=== PATIENT | female | born 1980 ===

== ENCOUNTER 2018-09-25 10:39 | Emergency (ER) | payer MEDICAID, OTHER ==
[2018-09-25 10:40] VITALS: BMI 23.9
[2018-09-25 11:09] VITALS: TEMP 97.6
[2018-09-25] MEDS ORDERED: Benzocaine/Menthol (Cepacol) Lozenge MT STA (11:52)
[2018-09-25 12:23] LABS: INFLUENZA A B NEGATIVE FOR FLU A/B (NEGATIVE)
--- NOTE | 2018-09-25 12:33 | ED PDOC ---
Arrival/HPI - General Chief Complaint: ENT Problem Time Seen by Provider: 09/25/18 10:41 Historian: Patient - History of Present Illness Narrative History of Present Illness (Text): 09/25/18 11:10 38 y/o female, with no significant PMH, presents to the ED for evaluation of fever and sore throat x 4 days. Patient states worsening sore throat with swallowing but denies any changes to PO intake. Patient reports taking ibuprofen at 6 am this morning for the symptoms with mild improvement. Patient denies any other associated somatic complaints. Patient denies any recent travel or sick contact. Patient denies any chills, headache, dizziness, chest pain, shortness of breath, dyspnea on exertion, cough, abdominal pain, drooling, nausea, vomiting, diarrhea, back pain, neck pain, neck stiffness, congestion, or any other complaints. Time/Duration: < week Symptom Onset: Gradual Symptom Course: Unchanged Activities at Onset: Light Context: Home Past Medical History - Provider Review Nursing Documentation Reviewed: Yes - Infectious Disease Hx of Infectious Diseases: None - Past Medical History Past Medical History: No Previous - Cardiac Hx Cardiac Disorders: No - Pulmonary Hx Respiratory Disorders: No - Neurological Hx Neurological Disorder: No - HEENT Hx HEENT Disorder: No - Renal Hx Renal Disorder: No - Endocrine/Metabolic Hx Endocrine Disorders: Yes Hx Hypothyroidism: Yes - Hematological/Oncological Hx Blood Disorders: No - Integumentary Hx Dermatological Disorder: No - Musculoskeletal/Rheumatological Hx Musculoskeletal Disorders: No - Gastrointestinal Hx Gastrointestinal Disorders: No - Genitourinary/Gynecological Hx Genitourinary Disorders: No - Psychiatric Hx Psychophysiologic Disorder: No Hx Substance Use: No - Surgical History Hx Section: Yes - Anesthesia Hx Anesthesia: Yes Hx Anesthesia Reactions: No Hx Malignant Hyperthermia: No - Suicidal Assessment Feels Threatened In Home Enviroment: No Family/Social History - Physician Review Nursing Documentation Reviewed: Yes Family/Social History: Unknown Family HX Smoking Status: Never Smoked Hx Alcohol Use: No Hx Substance Use: No Hx Substance Use Treatment: No Allergies/Home Meds Allergies/Adverse Reactions: Allergies latex Allergy (Verified 09/25/18 11:05) RASH Review of Systems - Physician Review All systems were reviewed & negative as marked: Yes - Review of Systems Constitutional: Fevers Eyes: Normal. absent: Vision Changes, Photophobia ENT: Sore Throat. absent: Rhinorrhea, Sinus Congestion Respiratory: Normal. absent: SOB, Cough, Sputum Cardiovascular: Normal. absent: Chest Pain, MONTANO Gastrointestinal: Normal. absent: Abdominal Pain, Stool Changes, Diarrhea, Nausea, Vomiting, Appetite Changes Genitourinary Female: Normal. absent: Dysuria, Frequency, Urine Output Changes Musculoskeletal: Normal. absent: Back Pain, Neck Pain Skin: Normal. absent: Rash Neurological: Normal. absent: Headache, Dizziness Endocrine: Normal. absent: Diaphoresis Hemo/Lymphatic: Normal Psychiatric: Normal. absent: Anxiety Physical Exam Vital Signs Reviewed: Yes Vital Signs Temp Pulse Resp BP Pulse Ox 09/25/18 11:05 97.6 F 73 17 110/72 99 Temperature: Afebrile Blood Pressure: Normal Pulse: Regular Respiratory Rate: Normal Appearance: Positive for: Well-Appearing, Non-Toxic, Comfortable Pain Distress: None Mental Status: Positive for: Alert and Oriented X 3 - Systems Exam Head: Present: Atraumatic, Normocephalic Pupils: Present: PERRL Extroacular Muscles: Present: EOMI Conjunctiva: Present: Normal Mouth: Present: Moist Mucous Membranes. No: Drooling Pharnyx: Present: ERYTHEMA (tonsilar erythema b/l), EXUDATE (tonsilar exudate bilaterally), TONSILS ENLARGED (bilaterally) Neck: Present: Normal Range of Motion, Lymphadenopathy (Right sided anterior cervical lymphadenopathy). No: Meningeal Signs, MIDLINE TENDERNESS Respiratory/Chest: Present: Clear to Auscultation, Good Air Exchange. No: Respiratory Distress, Accessory Muscle Use Cardiovascular: Present: Regular Rate and Rhythm, Normal S1, S2, Peripheal Pulses Present. No: Murmurs Back: Present: Normal Inspection. No: CVA Tenderness Upper Extremity: Present: Normal Inspection, Normal ROM, NORMAL PULSES, Neurovascularly Intact, Capillary Refill < 2s. No: Cyanosis, Edema, Tenderness, Swelling, Temperature Abnormalties Lower Extremity: Present: Normal ROM, Neurovascularly Intact Neurological: Present: GCS=15, CN II-XII Intact, Speech Normal, Motor Func Grossly Intact, Normal Sensory Function, Gait Normal Skin: Present: Warm, Dry, Normal Color. No: Rashes Psychiatric: Present: Alert, Oriented x 3, Normal Insight, Normal Concentration, Normal Affect, Normal Mood Medical Decision Making ED Course and Treatment: 09/25/18 11:10 Initial Plan: * PO Cepacol * Rapid Influenza AB * Rapid Strep Rapid strep negative, pending culture Rapid flu negative Patient educated that symptoms are most likely viral. Advised supportive care and ENT and PMD followup. Diagnostic testing results and plan of care discussed with patient. Strict instructions given regarding prescription use, importance of followup, and signs/symptoms to return to ER including difficulty breathing, drooling, neck swelling/pain/stiffness, or any other new/worsening symptoms. Pt verbalized understanding of discussion. Patient is A&Ox3, ambulating with steady gait, with vital signs stable for discharge. - Medication Orders Current Medication Orders: Discontinued Medications Benzocaine/Menthol (Cepacol Sore Throat) 1 barney MT STAT STA Stop: 09/25/18 11:53 - PA / NEWS AGENT / Resident Statement MD/ has reviewed & agrees with the documentation as recorded. - Scribe Statement The provider has reviewed the documentation as recorded by the Scribe Leon Ennis. All medical record entries made by the Scribe were at my direction and personally dictated by me. I have reviewed the chart and agree that the record accurately reflects my personal performance of the history, physical exam, medical decision making, and the department course for this patient. I have also personally directed, reviewed, and agree with the discharge instructions and disposition. Disposition/Present on Arrival - Present on Arrival Any Indicators Present on Arrival: No History of DVT/PE: No History of Uncontrolled Diabetes: No Urinary Catheter: No History of Decub. Ulcer: No History Surgical Site Infection Following: None - Disposition Have Diagnosis and Disposition been Completed?: Yes Diagnosis: Pharyngitis Disposition: HOME/ ROUTINE Disposition Time: 12:45 Patient Plan: Discharge Condition: GOOD Discharge Instructions (ExitCare): Viral Pharyngitis, Sore Throat in Adults Print Language: [place] Additional Instructions: Cepacol cada 4 horas segn sea necesario para el dolor de garganta. Ibuprofeno cada 6 horas segn sea necesario para el dolor de garganta Aumentar los fluidos Bricelyn, no actividad vigorosa. Seguimiento con ENT dentro de 2 woody. Seguimiento con mdico primario en 2 woody. Regrese a la zachary de emergencias con cualquier sntoma nuevo o que empeore Prescriptions: Benzocaine/Menthol [Cepacol Sore Throat] 1 barney MM Q4 PRN #2 pkg PRN Reason: Sore Throat Referrals: Todd Esposito, [Staff Provider] - Follow up with primary Forms: [employer] (Belgian), WORK NOTE
[2018-09-25 13:21] VITALS: BP 118/74; PULSE 71; RESP 18; O2SAT 100
== END 2018-09-25 13:18 | disposition home or self-care (01) ==
LOC: ED 10:39
DX: J02.9 Acute pharyngitis, unspecified (principal)